=== PATIENT | female | born 1945 | race Caucasian/White ===

== ENCOUNTER 2017-01-18 11:26 | Day surgery (SDC) | payer MEDICARE, OTHER ==
[2017-01-18] VITALS (9 sets, daily range): BP systolic 97–118; BP diastolic 55–70; PULSE 76–82; RESP 10–16; O2SAT 94–99
[~2017-01-18] VITALS: Ht 170.2 cm; Wt 82.8 kg
[~2017-01-18 11:26] MED LIST: CALC600T12 PO; CHOL10008 PO; ESTR0.5T4 PO; LEVO112C2 PO; OMEP20TA24 PO; PRV40T PO; TRAZ-115 PO
[2017-01-18] MEDS ORDERED: fentaNYL-PF 50 mCg/mL 2 mL Inj ONE (11:27)
[2017-01-18] MEDS ORDERED: Propofol 10,000 mCg/mL 20 mL Inj ONE (11:27)
[2017-01-18] MEDS ORDERED: Dexamethasone 4 mg/mL Inj ONE (11:27)
[2017-01-18] MEDS ORDERED: Ondansetron 2 mg/mL 2 mL Inj ONE (11:27)
[2017-01-18] MEDS ORDERED: MetoCLOpramide 5 mg/mL 2 mL Inj ONE (11:27)
[2017-01-18] MEDS: Lactated Ringer's 1,000 ML IV SCH ×2 (11:37→14:26)
[2017-01-18] MEDS ORDERED: Bupivacaine Liposome 1.3% 20 mL Inj ONE (14:01)
[2017-01-18] MEDS ORDERED: Bupivacaine-MPF 0.5% W/EPI 30 mL Inj INFILTRATE ONE (14:26)
--- NOTE | 2017-01-18 14:26 | PCM.HPANE ---
Patient Data Surgeon Admitting Provider: Attending Provider:Jnue Mabry MD Primary Care Physician:Elijah Stinson MD Other Provider:[facility] Reason for Visit External Hemorrhoids Ht/WT & BMI Height (Feet): 5 Height (Inches): 7 Weight (Kilograms): 82.8 Body Mass Index 28.00 Allergies Coded Allergies: No Known Allergies (Verified , 09/14/09) Past Anesthesia History Anesthesia History: Denies:: Abnormal Airway, Anesthesia Reactions, Difficult Intubation, Fam Anesthesia Reaction, Fam Malignant Hypertherm, Malignant Hyperthermia Diabetes History Hx Diabetes?: No MRSA MRSA: No Medications Hypertension Medication: No Home Meds Incl Beta Enrique: No Reported Medications Cholecalciferol (Vitamin D3) (Vitamin D3)1,000 Unit Tab.chew1,000 Unit PO DAILY 01/12/17 Trazodone 50 Mg Hncdlo71 Mg PO TID Ref 0 01/12/17 Levothyroxine (Tirosint)112 Mcg [id number] Mcg PO DAILY 01/12/17 Omeprazole Magnesium (Prilosec Otc)20 Mg Tablet.dr40 Mg PO DAILY #1 PKG Ref 0 01/12/17 Pravastatin (Pravachol)40 Mg Vlwovx05 Mg PO HS Ref 0 01/12/17 Estradiol (Estrace)0.5 Mg Tablet0.5 Mg PO DAILY 30 Days Ref 0 days 1-21 only 01/12/17 Calcium Carbonate (Calcium)600 Mg Gssvho307 Mg PO DAILYWD 01/12/17 Discontinued Reported Medications Multivitamin (Daily Multiple Vitamin)1 Each Tablet1 Each PO DAILY 03/17/14 Ca Cmb No.1/Vit D3/B-6/FA/B12 (Vitamin D3 1,000 Unit Tablet)1 Each Tablet1 Each PO DAILY 03/17/14 Omeprazole Magnesium (Omeprazole)20 Mg Capsule.dr20 Mg PO DAILY Ref 0 03/17/14 [place]-3 Fatty Acids/Fish Oil ([place] 3 Fish Oil Softgel)1 Each Capsule.dr1 Each PO DAILY 03/17/14 Levothyroxine (Synthroid)25 Mcg Fteuje08 Mcg PO DAILY Ref 0 03/17/14 History History of ENT Problems?: Yes HEENT History: Positive for:: Cataracts (bilateral surgery) TMJ (grinds, no nightguard) Denies:: Abnormal Airway Difficult Intubation Dysphagia Glaucoma Hearing Problem Sinus Problem Denture Type: None Teeth Condition: Within Normal Limits Hx of Heart Problems?: No Cardiovascular History: Denies:: AICD Abdominal Aortic Aneurism Atrial Fibrillation Cardiac Surgery Chest Pain Congestive Heart Failure Coronary Artery Disease Edema Heart Murmur Hypertension Irregular Heartbeat Pacemaker Peripheral Vascular Rheumatic Fever Thrombophlebitis Valvular Heart Disease Other Cardiac History: 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, compensated Hx of Respiratory Problem?: No Respiratory History: Positive for:: Tuberculosis Denies:: Asthma COPD Chest Surgery Cough Dyspnea Emphysema Hemoptysis Oxygen Administration Pneumonia Pulmonary Embolism Use of C-PAP Machine Use of Inhalers / NEBS Hx Neurologic Problems?: No Neurological History: Denies:: Alzheimer's Disease CVA Dementia Dizziness Headaches Multiple Sclerosis Parkinson's Disease Peripheral Neuropathy Seizures TIA Hx of GI Problems?: Yes Gastrointestinal History: Denies:: Cirrhosis Diverticulitis Gall Bladder Disease Gastroesphageal Reflux Gastrointestinal Bleeding Heartburn Hepatitis Hiatal Hernia Liver Disease Rectal Bleeding Hx of Problems?: No Genitourinary History: Denies:: HX of Hemodialysis Kidney Stones Urinary Tract Infection HX of Peritoneal Dialysis: No Female Hx: Denies:: Currently (hysterectomy) Endometriosis Pelvic Inflammatory Problems with Breasts? Skin History: Denies:: History Skin Disorders? Pressure Ulcers Hx Musculoskeletal Problems?: Yes Musculoskeletal History: Positive for:: Musculoskeletal Trauma (osteoporosis) Denies:: Back Injury Degenerative Joint Fibromyalgia Joint Replacement Myasthenia Gravis Osteoarthritis Rheumatoid Arthritis Systemic Lupus Hx of Psycho/Social Problems?: Yes Psycho Social History: Positive for:: Hx Depression Denies:: Anxiety Bipolar Disorder Suicide Attempt Hx Surgeries?: Yes (neela, hemorrhoid, tonsil, gia cataracts ) Hx Any Other Health Problems?: Yes Other History: Positive for:: Thyroid Disease Denies:: Cancer Endocrine Disease Hospitalization History Blood Transfusions: Positive for:: Accept Blood Products? Denies:: Blood Transfuse Reaction Blood Transfusions Hx Diabetes: No Hx Alcohol Use: YesAlcoholic Drinks Per Day: 3 drinks weekHx Substance Use: NoHave You Smoked inLast 12 mo: No Stop/Bang S-Snoring: Do You Snore Loudly: No T-Tired: feel tired, fatigued: No O-Obsered: Observed not breath: No P-Blood Pressure: treated: No B- Body Mass Index > 35 kg/m2: No A- Age over 50: Yes N- Neck Large Circumference: No G- Gender Male: No DEREK Total Score: 1 Risk Assessment Category Category 1A: Patient has history of documented sleep apnea, and HAS NOT received any narcotic, sedative or anesthesia administration during this stay. Category 1B: Patient has history of documented sleep apnea, and HAS received any narcotic , sedative or anesthesia administration during this stay Category 2: Patient has SUSPECTED Obstructive Sleep Apnea, and HAS received any narcotic , sedative or anesthesia administration during this stay. Category 3: Patient has SUSPECTED Obstructive Sleep Apnea and HAS NOT received narcotic, sedative or anesthesia administration during this stay. Category 4: Outpatient in Procedural Areas with known sleep apnea or who screen positive for High Risk via the STOP/BANG questionnaire. Exam Exam Vital Signs Vital Signs Date Time Temp Pulse Resp B/P Pulse Ox O2 Delivery O2 Flow Rate FiO2 01/18/17 11:50 36.5 78 16 106/70 95 Room Air General Appearance: Alert, Oriented X3, Cooperative, No Acute Distress HEENT/AIRWAY: MP 2, Neck Movement (FROM), Mouth Opening (3 FBMO) Lungs: Clear to Auscultation, Normal Air Movement Heart: Exam Unremarkable, Regular Rate/Rhythm, No Murmurs/Rubs/Gallops Meds/Labs/Diagnostics Admission Meds Current Medications Lactated Ringer's (Lr) 1,000 ml @ 120 mls/hr Q8H20M IV Last administered on t 11:37; Start 01/18/17 at 05:00; Stop 01/18/17 at 13:19 Plan Impression Patient chart reviewed, patient interviewed and anesthestic plan with risks, benefits, and alternatives discussed, and informed consent obtained. NPO per Anesth. Guidelines: Yes ASA Physical Status: ASA3 Severe Disease (ITP low platelets) Anesthetic Plan: GA Bene/Risks/Altern/Consents: Yes HP Complete Prior to Induction: Yes Other Extra platelets available from the blood bank if necessary Diogenes Gregorio MD Jan 18, 2017 12:03
[2017-01-18] MEDS ORDERED: Lactated Ringer's 1,000 ML IV SCH (14:27)
[2017-01-18] MEDS ORDERED: Lactated Ringer's 500 ML IV PRN (14:27)
[2017-01-18] MEDS ORDERED: fentaNYL-PF 50 mCg/mL 2 mL Inj IVPUSH PRN (14:30)
[2017-01-18] MEDS ORDERED: EPHEDrine Sulfate 50 mg/mL Inj IVPUSH PRN (14:30)
[2017-01-18] MEDS ORDERED: Ondansetron 2 mg/mL 2 mL Inj IVPUSH PRN (14:30)
[2017-01-18] MEDS ORDERED: Labetalol 5 mg/mL 4 mL Inj IV PRN (14:30)
[2017-01-18] MEDS ORDERED: MetoCLOpramide 5 mg/mL 2 mL Inj IVPUSH PRN (14:30)
[2017-01-18] MEDS ORDERED: Atropine 0.4 mg/mL Inj IVPUSH PRN (14:30)
[2017-01-18] MEDS ORDERED: Phenylephrine 10,000 mCg/mL Inj IVPUSH PRN (14:30)
[2017-01-18] MEDS ORDERED: HYDROmorphone 1 mg/mL Inj IVPUSH PRN (14:30)
[2017-01-18] MEDS ORDERED: oxyCODONE-Acetamin 5-325 mg Tablet PO PRN (14:55)
--- NOTE | 2017-01-18 15:00 | PCM.DISURG ---
Surgical Discharge Instruction Date of Service Jan 18, 2017 Dates of Hospitalization Date of Hospital Admission Providers Admitting Physician: Primary Care Physician: Elijah Stinson MD Attending Physician: June Mabry MD Activity Discharge Activity-General: No restrictions, Activity as pain allows, No driving while taking narcotic Dressing and Incisional Care Dressing Care: Change soiled dressing Hygiene: May shower, DO NOT soak incision under water Additional Instructions Discharge Instructions Take ibuprofen with food, 600 mg, every 6 hours, around the clock. Take acetaminophen, 650-975 mg, every 6 hours, around the clock. Take oxycodone, 5-10 mg, every 6 hours, as needed for pain. Please try to wean off the oxycodone first. Take Miralax twice per day as needed to promote smooth and soft stools. Follow Up Plan Call your provider for: Fever, Chills, Wound redness, Increasing wound pain, Discharge @ incision, pus discharge Micah Shelton MD Jan 18, 2017 15:00
--- NOTE | 2017-01-18 15:15 | PCM.SURGOP ---
Surgical Operative Report Date of Service: Jan 18, 2017 Pre Operative Diagnosis Symptomatic external hemorrhoids Post Operative Diagnosis Symptomatic external hemorrhoids Procedure: External hemorrhoidectomy x 2 Surgeon and Carbon Paper Interleafer: Surgeon: June Mabry MD Assistants: Andrea Shelton MD R3 Indication for Procedure This is a 71-year-old woman who presented with perianal discomfort. Anoscopy is performed and perianal examination, and she had 2 large symptomatically external hemorrhoids. These were refractory to conservative management and therefore external hemorrhoidectomy was requested. Findings: 1. At the right posterolateral position was a 2 cm firm nodular hemorrhoid consistent with previous thrombosis. 2. At the posterior midline was an enlarged 3cm hemorrhoidal skin tag which which at the anterior midline was a small 1 cm hemorrhoidal skin tag, which was not removed. 3. At the anterior midline was a small 1 cm external hemorrhoidal skin tag, which was not removed. Procedure Details The patient was brought to the operating room and placed in supine position. General anesthesia was induced. A warming blanket was placed. She was repositioned into high lithotomy. The operative field was prepped and draped in sterile fashion. A preprocedural timeout was performed to confirm the correct patient, procedure, and site. A digital rectal examination was performed and was normal. 0.5% Marcaine was injected into the perianal tissues to perform a block. The right posterior lateral hemorrhoid and posterior hemorrhoidal skin tag were removed sharply with care taken to preserve the sphincter complex. The defect was closed with a running 3-0 chromic stitch. 20 mL of liposomal bupivacaine was injected into the perianal tissues. Antibiotic ointment was applied. The patient was awakened from general anesthesia and taken to the postoperative care unit in good condition. Complications There were no periprocedural complications identified. Surgical Specimen Removed: Yes Specimen sent to Pathology: Yes Surgical Specimen description: Hemorrhoids x 2 Anesthetic Plan: GA Grafts, Implants: None Output, Estimated Blood Loss: 0 (ml) Blood Administration during hatfield: No June Mabry MD Jan 18, 2017 15:15
--- NOTE | 2017-01-18 15:42 | PCM.ANEP1 ---
Post Anesthesia PACU Phase 1 Assessment Vital Signs Vital Signs Date Time Temp Pulse Resp B/P Pulse Ox O2 Delivery O2 Flow Rate FiO2 01/18/17 15:15 36.8 77 13 105/65 95 Room Air 01/18/17 15:10 76 15 104/61 95 Room Air 01/18/17 15:05 36.9 77 13 102/67 94 Room Air 01/18/17 15:00 77 15 101/61 95 Room Air 01/18/17 14:55 79 11 105/64 99 Room Air 01/18/17 14:50 77 10 97/55 99 Simple Mask 8 01/18/17 14:47 36.3 77 12 105/62 99 Simple Mask 8 01/18/17 11:50 36.5 78 16 106/70 95 Room Air Anesthetic Administered: GA Level of Alertness: Awake, talking HERNANDEZ's with Equal Strength: Yes Pain: No Nausea or Vomiting: No CV Function & Hydration Stable: No Airway Device: N/A Oxygen Delivery: Room Air Lungs: Clear to Auscultation, Normal Air Movement Dermatome Level: Full Sensation PACU Phase 2 Assessment Complications: No Follow up Care: N/A Patient Instructions Provided: N/A Diogenes Gregorio MD Jan 18, 2017 15:42
--- NOTE | 2017-01-25 09:31 | PATH ---
SURGICAL PATHOLOGY Attending Physician:June Mabry MD CASE STATUS: Signed Out PATIENT NAME: ANAY GARCIA PID: [id number] : 1945 DATE COLLECTED:01/18/2017 00:00 SPECIMEN: Hemorrhoids CLINICAL HISTORY: EXTERNAL HEMORRHOID 1). EXTERNAL HEMORRHOID FINAL DIAGNOSIS: 1.EXTERNAL HEMORRHOID: THROMBOSED HEMORRHOID TISSUE. Negative for dysplasia and malignancy. ICD10 K64 GROSS DESCRIPTION: Received in one formalin-filled container, labeled with the patient' s name and labeled "external hemorrhoid", are two dark back-leone, dome-shaped, rough portions of tissue which aggregate to 1.5 x 1.4 x 1.0 cm. The specimen is inked blue. Two personal banking representative sections are submitted in one cassette. (DC:[id number]) MICRO DESCRIPTION: See diagnosis. ICD-9 CODES: CPT CODES: 1: 17916 Electronically Signed Out Valeria Edouard MD [facility] Pathology [facility] [address], [place] [address] Technical component performed at [facility], [facility] [address], [place], [address]
== END 2017-01-18 23:59 | disposition home or self-care (01) ==
LOC: SAS 11:26
PROVIDERS: ATTEND Surgery
PROC: 06BY0ZC Excision of Hemorrhoidal Plexus, Open Approach (ICD-10-PCS; principal; 2017-01-18 13:15)
DX: K64.4 Residual hemorrhoidal skin tags (principal); D69.3 Immune thrombocytopenic purpura; E03.9 Hypothyroidism, unspecified; E78.5 Hyperlipidemia, unspecified; K21.9 Gastro-esophageal reflux disease without esophagitis
CPT/HCPCS: 36415; 46250; 88304; J1100; J2250; J2405; J2765; J3010; J7120